=== PATIENT | female | born 1935 | race Hispanic/Latino ===

== ENCOUNTER → 2020-09-03 | Outpatient (CLI) | payer MEDICARE | END | disposition home or self-care (01) | LOC: RAH 12:22 | PROVIDERS: ATTEND Urology | DX: N20.0 Calculus of kidney (principal); N21.0 Calculus in bladder; N28.1 Cyst of kidney, acquired; I87.8 Other specified disorders of veins | CPT/HCPCS: 74018; 76100; 76770 ==

== ENCOUNTER → 2020-10-19 | Outpatient (CLI) | payer MEDICARE | END | disposition home or self-care (01) | LOC: RAH 10:52 | PROVIDERS: ATTEND Urology | DX: N20.0 Calculus of kidney (principal); K80.20 Calculus of gallbladder without cholecystitis without obstruction; M47.9 Spondylosis, unspecified | CPT/HCPCS: 74176 ==

== ENCOUNTER → 2023-03-21 | Outpatient (CLI) | payer OTHER | END | disposition home or self-care (01) | LOC: RAH 11:17 | PROVIDERS: ATTEND Internal Medicine | DX: S99.912A Unspecified injury of left ankle, initial encounter (principal); M19.072 Primary osteoarthritis, left ankle and foot; M25.472 Effusion, left ankle; M77.32 Calcaneal spur, left foot; X58.XXXA Exposure to other specified factors, initial encounter; Y93.89 Activity, other specified; Y92.89 Other specified places as the place of occurrence of the external cause; Y99.8 Other external cause status | CPT/HCPCS: 73610 ==